=== PATIENT | male | born 1960 | race African-American/Black ===

== ENCOUNTER 2018-07-24 10:54 | Inpatient (IN) | payer MEDICAID ==
[~2018-07-24] VITALS: Ht 188 cm; Wt 186.9 kg
[2018-07-24] MEDS ORDERED: HYDR12.54 PO (11:02)
[2018-07-24] MEDS ORDERED: IBUP-2029 PO (11:02)
[2018-07-24] MEDS ORDERED: ATEN-42 PO (11:02)
[2018-07-24] MEDS ORDERED: SITA25TA3 PO (11:02)
[2018-07-24] MEDS ORDERED: METF-815 PO (11:02)
[2018-07-24] MEDS ORDERED: BACL-141 PO (11:02)
[2018-07-24] MEDS ORDERED: HYDRALAZINE 20MG/ML VIAL IV ONE ×2 (11:15→16:30)
[2018-07-24 11:59] LABS: CHLORIDE 101 mEq/L (98-107)
[2018-07-24 12:01] LABS: BASOPHILS % 0.5 % (0.0-2.0); EOSINOPHILS % 4.4 % (0.0-5.0); HEMATOCRIT. 46.6 % (42.0-52.0); HEMOGLOBIN. 15.5 g/dL (14.0-18.0); LYMPHOCYTES % 28.1 % (20.0-50.0); MEAN CORPUSCULAR HEMOGLOBIN 26.3 pg (28.0-32.0); MEAN CORPUSCULAR VOLUME 78.7 fL (80.0-94.0); MEAN PLATELET VOLUME 9.1 fl (7.4-10.4); MONOCYTES % 7.7 % (2.0-8.0); NEUTROPHILS % 59.3 % (40.0-76.0); PLATELET 237 x1000/uL (130-400); RED BLOOD CELL COUNT 5.92 mill/uL (4.7-6.1); RED CELL DISTRIBUTION WIDTH 14.6 % (11.6-14.6)
[2018-07-24 12:07] LABS: PARTIAL THROMBOPLASTIN TIME 28.2 sec (23.4-31.0)
[2018-07-24] MEDS ORDERED: ASPIRIN 325MG EC TABLET PO ONE (13:30)
[2018-07-24] MEDS ORDERED: IOHEXOL-350 100 ML BOTTLE ONE (13:49)
[2018-07-24] MEDS ORDERED: CLONIDINE 0.2MG TABLET PO ONE (15:30)
[2018-07-24] MEDS ORDERED: CLONIDINE 0.1MG TABLET PO ONE (16:30)
[2018-07-24] MEDS ORDERED: NIFEDIPINE XL 60MG TAB PO SCH (17:15)
[2018-07-24] MEDS ORDERED: DEXTROSE 50% WATER 50ML SYRINGE IV PRN (17:15)
[2018-07-24] MEDS: BLOOD SUGAR DIAGNOSTIC STRIP TEST SCH (21:00)
[2018-07-24 21:30] VITALS: BP 141/78
[2018-07-24 21:35] VITALS: BP 141/78
[2018-07-24] MEDS ORDERED: SIMV20TA6 MT (21:41)
[2018-07-24] MEDS: NIFEDIPINE XL 60MG TAB PO SCH (22:26)
[2018-07-24] MEDS: INSULIN LISPRO 100 UNITS/ML SUBCUT SCH (22:29)
[2018-07-25] VITALS: BP 164/95
[2018-07-25] MEDS: HYDRALAZINE 20MG/ML VIAL IV PRN ×2 (00:49→20:12)
[2018-07-25 04:00] VITALS: BP 167/85
[2018-07-25] MEDS: BLOOD SUGAR DIAGNOSTIC STRIP TEST SCH ×4 (06:03→20:07)
[2018-07-25] MEDS: INSULIN LISPRO 100 UNITS/ML SUBCUT SCH ×4 (06:54→21:24)
[2018-07-25 08:00] VITALS: BP 158/86
[2018-07-25 08:42] LABS: CLARITY URINE CLEAR (CLEAR); COLOR URINE YELLOW (YELLOW); KETONES URINE NEGATIVE (NEGATIVE); LEUKOCYTE ESTERASE URINE NEGATIVE (NEGATIVE); NITRITE URINE NEGATIVE (NEGATIVE); OCCULT BLOOD URINE NEGATIVE (NEGATIVE); PROTEIN URINE NEGATIVE (NEGATIVE); UROBILINOGEN URINE 0.2 E.U./dL (0.2-1.0)
[2018-07-25] MEDS: ASPIRIN 81MG TABLET PO SCH (09:00)
[2018-07-25] MEDS: NIFEDIPINE XL 60MG TAB PO SCH ×2 (09:45→17:02)
[2018-07-25 10:00] LABS: *AMPHETAMINES SCREEN URINE NEGATIVE (NEGATIVE); *BARBITURATES SCREEN URINE NEGATIVE (NEGATIVE); *BENZODIAZEPINES SCREEN URINE NEGATIVE (NEGATIVE); *COCAINE SCREEN URINE NEGATIVE (NEGATIVE); METHADONE URINE SCREEN NEGATIVE (NEGATIVE)
[2018-07-25 10:01] LABS: CANNABINOID URINE SCREEN PRESUMTIVE POSITIVE (NEGATIVE); OPIATES URINE SCREEN NEGATIVE (NEGATIVE); PHENCYCLIDINE URINE SCREEN NEGATIVE (NEGATIVE)
[2018-07-25 12:00] VITALS: BP 178/102
[2018-07-25 16:00] VITALS: BP 149/87
[2018-07-25 19:50] VITALS: BP 160/104
[2018-07-25] MEDS ORDERED: INSULIN GLARGINE UD 100 UNITS/ML SYR SUBCUT SCH (22:30)
[2018-07-25] MEDS ORDERED: ATORVASTATIN CALCIUM 20MG TABLET PO SCH (23:00)
[2018-07-25] MEDS: ENOXAPARIN 40MG/0.4ML SYR SUBCUT SCH (23:10)
[2018-07-26] VITALS (7 sets, daily range): BP systolic 147–164; BP diastolic 82–102
[2018-07-26] MEDS: BLOOD SUGAR DIAGNOSTIC STRIP TEST SCH ×4 (06:20→21:02)
[2018-07-26] MEDS: INSULIN LISPRO 100 UNITS/ML SUBCUT SCH (06:56)
[2018-07-26 07:38] LABS: BASOPHILS % 0.6 % (0.0-2.0); EOSINOPHILS % 2.2 % (0.0-5.0); HEMATOCRIT. 44.4 % (42.0-52.0); HEMOGLOBIN. 15.3 g/dL (14.0-18.0); LYMPHOCYTES % 19.3 % (20.0-50.0); MEAN CORPUSCULAR HEMOGLOBIN 27.1 pg (28.0-32.0); MEAN CORPUSCULAR VOLUME 78.6 fL (80.0-94.0); MEAN PLATELET VOLUME 9.3 fl (7.4-10.4); MONOCYTES % 7.6 % (2.0-8.0); NEUTROPHILS % 70.3 % (40.0-76.0); PLATELET 227 x1000/uL (130-400); RED BLOOD CELL COUNT 5.65 mill/uL (4.7-6.1); RED CELL DISTRIBUTION WIDTH 14.5 % (11.6-14.6)
[2018-07-26 07:41] LABS: CHLORIDE 101 mEq/L (98-107)
[2018-07-26 07:56] LABS: TOTAL IRON BINDING CAPACITY 233 ug/dL (250-450)
[2018-07-26] MEDS: ASPIRIN 81MG TABLET PO SCH (09:53)
[2018-07-26] MEDS: NIFEDIPINE XL 60MG TAB PO SCH ×2 (09:53→16:10)
[2018-07-26] MEDS: ENOXAPARIN 40MG/0.4ML SYR SUBCUT SCH ×2 (09:53→21:01)
[2018-07-26] MEDS: CLOPIDOGREL 75MG TABLET PO SCH (12:40)
[2018-07-26 14:54] LABS: VITAMIN B12 SERUM 583 pg/mL (211-911)
[2018-07-26 16:37] LABS: ETHANOL BLOOD < 10 mg/dL
[2018-07-26 16:39] LABS: HDL CHOLESTEROL 46 mg/dL (40-59)
[2018-07-26 16:40] LABS: LDL CHOLESTEROL 120 mg/dL (5-100)
[2018-07-26 16:42] LABS: T4 FREE 0.98 ng/dL (0.76-1.46)
[2018-07-26 16:54] LABS: FOLIC ACID (FOLATE) SERUM > 20.00 ng/mL (>5.38)
[2018-07-26] MEDS: METFORMIN HCL 500MG TABLET PO SCH (17:09)
[2018-07-26] MEDS: ATORVASTATIN CALCIUM 40MG TABLET PO SCH (21:00)
[2018-07-26] MEDS ORDERED: INSULIN GLARGINE UD 100 UNITS/ML SYR SUBCUT SCH (22:00)
[2018-07-27] VITALS: BP 153/95
[2018-07-27 04:00] VITALS: BP 139/97
[2018-07-27] MEDS: BLOOD SUGAR DIAGNOSTIC STRIP TEST SCH ×4 (06:38→21:42)
[2018-07-27] MEDS ORDERED: DEXTROSE 50% WATER 50ML SYRINGE IV PRN (07:30)
[2018-07-27] MEDS: INSULIN LISPRO 100 UNITS/ML SUBCUT SCH ×4 (07:40→21:39)
[2018-07-27 07:53] LABS: BASOPHILS % 0.6 % (0.0-2.0); EOSINOPHILS % 2.7 % (0.0-5.0); HEMATOCRIT. 45.6 % (42.0-52.0); HEMOGLOBIN. 15.3 g/dL (14.0-18.0); LYMPHOCYTES % 24.2 % (20.0-50.0); MEAN CORPUSCULAR HEMOGLOBIN 26.5 pg (28.0-32.0); MEAN CORPUSCULAR VOLUME 79.1 fL (80.0-94.0); MEAN PLATELET VOLUME 9.1 fl (7.4-10.4); MONOCYTES % 7.8 % (2.0-8.0); NEUTROPHILS % 64.7 % (40.0-76.0); PLATELET 251 x1000/uL (130-400); RED BLOOD CELL COUNT 5.76 mill/uL (4.7-6.1); RED CELL DISTRIBUTION WIDTH 14.9 % (11.6-14.6)
[2018-07-27 08:00] VITALS: BP 136/71
[2018-07-27 08:10] LABS: CHLORIDE 101 mEq/L (98-107)
[2018-07-27] MEDS: CLOPIDOGREL 75MG TABLET PO SCH (08:33)
[2018-07-27] MEDS: ENOXAPARIN 40MG/0.4ML SYR SUBCUT SCH ×2 (08:33→21:33)
[2018-07-27] MEDS: NIFEDIPINE XL 60MG TAB PO SCH ×2 (08:34→17:24)
[2018-07-27] MEDS: ASPIRIN 81MG TABLET PO SCH (08:34)
[2018-07-27] MEDS: METFORMIN HCL 500MG TABLET PO SCH ×2 (08:34→17:24)
[2018-07-27 12:00] VITALS: BP 129/84
[2018-07-27 16:00] VITALS: BP 134/84
[2018-07-27 20:00] VITALS: BP 139/94
[2018-07-27] MEDS: ATORVASTATIN CALCIUM 40MG TABLET PO SCH (21:41)
[2018-07-27] MEDS ORDERED: INSULIN GLARGINE UD 100 UNITS/ML SYR SUBCUT SCH (22:00)
[2018-07-28] VITALS (7 sets, daily range): BP systolic 118–138; BP diastolic 68–93
[2018-07-28] MEDS: INSULIN LISPRO 100 UNITS/ML SUBCUT SCH ×2 (06:21→13:18)
[2018-07-28] MEDS: METFORMIN HCL 500MG TABLET PO SCH (06:31)
[2018-07-28] MEDS: BLOOD SUGAR DIAGNOSTIC STRIP TEST SCH ×2 (06:31→12:02)
[2018-07-28] MEDS: CLOPIDOGREL 75MG TABLET PO SCH (08:44)
[2018-07-28] MEDS: ASPIRIN 81MG TABLET PO SCH (08:44)
[2018-07-28] MEDS: NIFEDIPINE XL 60MG TAB PO SCH (08:45)
[2018-07-28] MEDS: ENOXAPARIN 40MG/0.4ML SYR SUBCUT SCH (08:46)
[2018-07-28 09:09] LABS: FOLATE HEMATOCRIT 48.5 % (37.5-51.0)
[2018-07-28] MEDS ORDERED: DILTIAZEM HCL 90MG TABLET PO SCH (14:00)
[2018-07-29 08:24] LABS: FOLATE HEMOLYSATE 553.3 ng/mL (Not Estab.); FOLATE RBC 1141 ng/mL (>498)
== END 2018-07-28 18:42 | disposition home or self-care (01) | DRG 45 ==
LOC: ER 10:54 → 8WST 14:04 → ENRESERV 19:08
PROVIDERS: ADMIT Internal Medicine; ATTEND Internal Medicine
DX: I63.9 Cerebral infarction, unspecified (principal); E11.65 Type 2 diabetes mellitus with hyperglycemia; E66.01 Morbid (severe) obesity due to excess calories; G81.91 Hemiplegia, unspecified affecting right dominant side; I47.1 Supraventricular tachycardia; F12.90 Cannabis use, unspecified, uncomplicated; R47.1 Dysarthria and anarthria; I10 Essential (primary) hypertension; E78.5 Hyperlipidemia, unspecified; G81.94 Hemiplegia, unspecified affecting left nondominant side; E78.00 Pure hypercholesterolemia, unspecified; R47.01 Aphasia; R26.2 Difficulty in walking, not elsewhere classified; Z82.49 Family history of ischemic heart disease and other diseases of the circulatory system; Z91.19 Patient's noncompliance with other medical treatment and regimen; Z87.891 Personal history of nicotine dependence; Z68.43 Body mass index [BMI] 50.0-59.9, adult; Z71.3 Dietary counseling and surveillance
CPT/HCPCS: 36415; 70450; 70496; 70498; 71045; 80048; 80053; 80061; 80076; 80305; 81003; 82607; 82746; 82747; 82962; 83036; 83540; 83550; 83735; 84439; 84443; 84481; 84484; 85014; 85025; 85610; 85730; 92610; 93005; 93306; 96374; 96376; 97116; 97162; 99285; G0482; J0360; J1650; J1815; Q9967